=== PATIENT | male | born 1955 | race Caucasian/White ===

== ENCOUNTER 2022-01-26 04:24 | Day surgery (SDC) | payer OTHER ==
[2022-01-22 11:37] VITALS: BMI 30.3
[2022-01-26] MEDS ORDERED: FENTANYL CITRATE/PF 50 MCG/ML VIAL ONE ×3 (10:16→11:00)
[2022-01-26] MEDS ORDERED: MIDAZOLAM HCL 2 MG/2 ML SINGLE DOSE VIAL ONE (10:16)
[2022-01-26] MEDS ORDERED: PROPOFOL 20 ML ONE (10:17)
[2022-01-26] MEDS ORDERED: ceFAZolin SODIUM 1 GM VIAL IVPB ONE (10:43)
[2022-01-26] MEDS ORDERED: ELECTROLYTE-148 SOLN 1,000 ML IV SCH (10:45)
[2022-01-26] MEDS ORDERED: ceFAZolin SODIUM 1 GM VIAL ONE (11:07)
[2022-01-26] MEDS ORDERED: ONDANSETRON 4 MG/2 ML VIAL ONE (11:07)
[2022-01-26] MEDS ORDERED: DEXAMETHASONE SOD PHOSPHATE 4 MG/1 ML VIAL ONE (11:07)
[2022-01-26] MEDS ORDERED: KETOROLAC TROMETHAMINE 30 MG/1 ML VIAL ONE (11:07)
[2022-01-26] MEDS ORDERED: LIDOCAINE HCL 2% JELLY 10 ML CARTRIDGE TP ONE (11:17)
[2022-01-26] MEDS ORDERED: oxyCODONE HCL 5 MG TABLET PO PRN (11:35)
[2022-01-26] MEDS ORDERED: ACETAMINOPHEN 1000 MG/100 ML BAG IVPB ONE ×2 (11:35→11:53)
[2022-01-26] MEDS ORDERED: ONDANSETRON 4 MG/2 ML VIAL IVPUSH PRN (11:35)
[2022-01-26] MEDS ORDERED: LACTATED RINGERS SOLUTION 1,000 ML IV SCH (11:45)
[2022-01-26 12:17] VITALS: RESP 18
[2022-01-26 13:21] VITALS: BP 145/83; PULSE 81; TEMP 97.7
== END 2022-01-26 13:23 | disposition home or self-care (01) ==
LOC: JASU-SURG 04:24
PROVIDERS: ATTEND Urology
PROC: 0T5B8ZZ Destruction of Bladder, Via Natural or Artificial Opening Endoscopic (ICD-10-PCS; principal; 2022-01-26 10:15)
DX: C67.9 Malignant neoplasm of bladder, unspecified (principal)
CPT/HCPCS: 86850; 86900; 86901; 88307-TC; 94760

== ENCOUNTER 2022-02-24 01:01 | Observation (INO) | payer OTHER ==
[2022-02-24] MEDS ORDERED: SODIUM CHLORIDE 2,504 ML IV ONE (01:35)
[2022-02-24] MEDS ORDERED: IBUPROFEN 400 MG TABLET (FP) PO ONE ×2 (03:14→03:20)
[2022-02-24 03:55] LABS: VENOUS BASE EXCESS -0.4 mmol/L (-2-2); VENOUS O2 SATURATION 53.2 % (70-80); VENOUS PCO2 44.9 mmHg (38-52); VENOUS PH 7.369 (7.310-7.410)
[2022-02-24 03:59] LABS: BASO % 0.1 % (0-2.0); EOS % 1.6 % (0-4.5); HEMATOCRIT 41.9 % (35.4-49); HEMOGLOBIN 13.9 GM/dL (11.7-16.9); LYMPH % 6.9 % (8-40); MCH 29.8 pg (25.7-33.7); MCHC 33.1 g/dl (32.0-35.9); MEAN CELL VOLUME 90.1 fl (80-96); MEAN PLT VOLUME 7.8 fl (7.5-11.1); MONO % 7.7 % (3.8-10.2); NEUT % 83.7 % (42.8-82.8); PLATELET COUNT 134 10^3/uL (134-434); RBC 4.65 M/mm3 (4.00-5.60); WHITE BLOOD COUNT 7.6 K/mm3 (4.0-10.0)
[2022-02-24 04:20] LABS: CALCIUM 8.5 mg/dL (8.5-10.1)
[2022-02-24 04:21] LABS: ALBUMIN 3.8 g/dl (3.4-5.0); BLOOD UREA NITROGEN 15.9 mg/dL (7-18)
[2022-02-24 04:22] LABS: INR 1.28 (0.83-1.09); PROTHROMBIN TIME (PATIENT) 14.8 SEC (9.7-13.0)
[2022-02-24 04:24] LABS: ACTIVATED PTT 29.4 SECONDS (25.2-36.5); CREATININE 1.3 mg/dL (0.55-1.3)
[2022-02-24 04:25] LABS: BILIRUBIN,TOTAL 0.4 mg/dL (0.2-1); TOT PROT 6.7 g/dl (6.4-8.2)
[2022-02-24 05:49] LABS: EPI CELLS 6 /uL (0-25.1); HYALINE CASTS 0 /uL (0-3.1); PH,URINE 5.5 (5.0-8.0); URINE APPEARANCE CLEAR; URINE BACTERIA 3 /uL (0-1359); URINE BILIRUBIN NEGATIVE (NEGATIVE); URINE COLOR YELLOW; URINE GLUCOSE (UA) NEGATIVE (NEGATIVE); URINE KETONE NEGATIVE (NEGATIVE); URINE LEUK ESTERASE 1+ (NEGATIVE); URINE NITRITE NEGATIVE (NEGATIVE); URINE PROTEIN NEGATIVE (NEGATIVE); URINE RBC 13 /uL (0-23.9); URINE UROBILINOGEN 0.2 mg/dL (0.2-1.0); URINE WBC 71 /uL (0-25.8)
[2022-02-24] MEDS ORDERED: ACETAMINOPHEN 325 MG TABLET (FP) PO PRN (09:27)
[2022-02-24] MEDS ORDERED: SODIUM CHLORIDE 1,000 ML IV SCH (09:30)
[2022-02-24] MEDS: ENOXAPARIN NA (PORCINE) 40 MG/0.4 ML DISP.SYRIN SQ SCH (10:33)
[2022-02-24] MEDS ORDERED: ROSUVASTATIN CA 20 MG TABLET ONE (22:24)
[2022-02-24] MEDS: ROSUVASTATIN CA 20 MG TABLET PO SCH (22:27)
[2022-02-25] MEDS ORDERED: ACETAMINOPHEN 325 MG TABLET (FP) ONE (06:06)
[2022-02-25 07:54] LABS: BASO % 0.1 % (0-2.0); EOS % 3.2 % (0-4.5); HEMATOCRIT 40.8 % (35.4-49); HEMOGLOBIN 13.6 GM/dL (11.7-16.9); LYMPH % 16.6 % (8-40); MCHC 33.3 g/dl (32.0-35.9); MEAN CELL VOLUME 90.1 fl (80-96); MEAN PLT VOLUME 7.6 fl (7.5-11.1); NEUT % 70.1 % (42.8-82.8); PLATELET COUNT 136 10^3/uL (134-434); RBC 4.53 M/mm3 (4.00-5.60); RDW 12.2 % (11.9-15.9)
[2022-02-25 08:08] LABS: ALBUMIN 3.7 g/dl (3.4-5.0); BLOOD UREA NITROGEN 11.4 mg/dL (7-18); CALCIUM 8.5 mg/dL (8.5-10.1); MAGNESIUM 1.7 mg/dL (1.8-2.4)
[2022-02-25 08:10] LABS: PHOSPHOROUS 2.9 mg/dL (2.5-4.9)
[2022-02-25 08:12] LABS: TOT PROT 6.6 g/dl (6.4-8.2)
[2022-02-25 08:29] LABS: BILIRUBIN,TOTAL 0.4 mg/dL (0.2-1)
[2022-02-25] MEDS ORDERED: ENOXAPARIN NA (PORCINE) 40 MG/0.4 ML DISP.SYRIN SQ ONE (09:42)
[2022-02-25] MEDS: ENOXAPARIN NA (PORCINE) 40 MG/0.4 ML DISP.SYRIN SQ SCH (09:46)
[2022-02-25 18:48] VITALS: BMI 29.8
[2022-02-25] MEDS: ROSUVASTATIN CA 20 MG TABLET PO SCH (22:00)
[2022-02-26] MEDS ORDERED: MAGNESIUM SULF 50% (8.12 MEQ/2 ML-1 GM VIAL) IVPB ONE (08:30)
[2022-02-26 11:01] VITALS: BP 126/78; PULSE 104; RESP 16; TEMP 98.3
[2022-02-26] MEDS: ENOXAPARIN NA (PORCINE) 40 MG/0.4 ML DISP.SYRIN SQ SCH (11:10)
[2022-02-26 11:37] LABS: BASO % 0.1 % (0-2.0); EOS % 2.9 % (0-4.5); HEMATOCRIT 42.3 % (35.4-49); HEMOGLOBIN 14.4 GM/dL (11.7-16.9); LYMPH % 17.7 % (8-40); MCH 30.5 pg (25.7-33.7); MCHC 33.9 g/dl (32.0-35.9); MEAN CELL VOLUME 89.9 fl (80-96); MEAN PLT VOLUME 7.8 fl (7.5-11.1); MONO % 7.8 % (3.8-10.2); NEUT % 71.5 % (42.8-82.8); PLATELET COUNT 177 10^3/uL (134-434); RDW 12.1 % (11.9-15.9); WHITE BLOOD COUNT 7.2 K/mm3 (4.0-10.0)
[2022-02-26 12:08] LABS: BLOOD UREA NITROGEN 14.1 mg/dL (7-18); MAGNESIUM 2.1 mg/dL (1.8-2.4)
[2022-02-26 12:12] LABS: BILIRUBIN,TOTAL 0.6 mg/dL (0.2-1); TOT PROT 7.2 g/dl (6.4-8.2)
[2022-02-27] MEDS ORDERED: TAMSULOSIN HCL 0.4 MG CAP PO SCH (08:30)
== END 2022-02-26 14:31 | disposition home or self-care (01) ==
LOC: JER 01:01 → UNDOADMOB 08:46 → INTOOBSV 08:46 → JERBED 08:46 → J5S 02-25 18:15
PROVIDERS: ADMIT Internal Medicine; ATTEND Internal Medicine
PROC: 3E033GC Introduction of Other Therapeutic Substance into Peripheral Vein, Percutaneous Approach (ICD-10-PCS; principal; 2022-02-25)
PROC: 3E023GC Introduction of Other Therapeutic Substance into Muscle, Percutaneous Approach (ICD-10-PCS; 2022-02-25)
PROC: 3E033GC Introduction of Other Therapeutic Substance into Peripheral Vein, Percutaneous Approach (ICD-10-PCS; 2022-02-25)
PROC: 3E0337Z Introduction of Electrolytic and Water Balance Substance into Peripheral Vein, Percutaneous Approach (ICD-10-PCS; 2022-02-25)
DX: N39.0 Urinary tract infection, site not specified (principal); E78.5 Hyperlipidemia, unspecified; T50.905A Adverse effect of unspecified drugs, medicaments and biological substances, initial encounter; Y92.89 Other specified places as the place of occurrence of the external cause; R79.89 Other specified abnormal findings of blood chemistry; C67.9 Malignant neoplasm of bladder, unspecified; Z88.8 Allergy status to other drugs, medicaments and biological substances
CPT/HCPCS: 0241U-QW; 36415; 71045-TC-FY; 74177-TC; 80053; 81003; 82550; 82803; 82962; 83605; 83735; 84100; 84484; 85025; 85610; 85730; 86850; 86900; 86901; 87040; 87086; 93005; 93010; 96361; 96372; 96374; 96375; 97116-GP; 97161-GP; 99285-25; G0378; Q9967